=== PATIENT | female | born 1990 | race Caucasian/White ===

== ENCOUNTER 2016-06-10 11:11 | Emergency (ER) | payer BC ==
[~2016-06-10] VITALS: Ht 154.9 cm; Wt 73.0 kg
[~2016-06-10 11:11] MED LIST: BIRTH CONTROL PILL; REQUIP1 MG PO
[2016-06-10 11:58] LABS: HEMATOCRIT 42.2 % (36.0-46.0); MCHC 34.6 G/DL (30.0-36.0); MCV 86.8 FL (83-99); MEAN PLAT.VOLUME 9.6 uM^3 (9.5-12.4); PLATELET COUNT 268 K/uL (156-360); RBC DIS.WIDTH-CV 12.5 % (11.8-14.6); RBC DIS.WIDTH-SD 38.8 % (39-53); RED BLOOD COUNT 4.86 M/uL (3.80-5.20)
[2016-06-10 12:06] LABS: CHLORIDE 105 mEq/L (99-109); SODIUM 139 mEq/L (136-147)
[2016-06-10 12:08] LABS: GLUCOSE 80 mg/dL (70-99)
[2016-06-10 12:10] LABS: ANION GAP 11 MEQ/L (2-14)
[2016-06-10 12:12] LABS: ALKALINE PHOSPHATASE 61 IU/L (3-129); GFR ESTIMATE (CALCULATED) > 59 mL/min/
[2016-06-10 12:13] LABS: UREA NITROGEN (BUN) 9 mg/dL (9-23)
[2016-06-10 12:15] LABS: LIPASE 20 U/L (1.0-51.0)
[2016-06-10 12:26] LABS: QUANTITATIVE HCG < 4.0 MIU/ML
[2016-06-10 14:48] LABS: ADD MIUA? NO; BILIRUBIN NEGATIVE; BLOOD NEGATIVE; COLOR YELLOW ((YELLOW)); GLUCOSE (STRIP) NEGATIVE; KETONES 15; LEUKOCYTES NEGATIVE; NITRITE NEGATIVE; PH, URINE 6.5 (5-8); PROTEIN (STRIP) TRACE; SPECIFIC GRAVITY 1.028 (1.000-1.030); UCUL ADDED? NO; UROBILINOGEN 0.2 MG/DL (0.2-1.0)
[2016-06-10] MEDS ORDERED: ZOFRAN ODT8 MG PO (15:12)
[2016-06-10] MEDS ORDERED: ZANTAC150 MG PO (15:12)
[2016-06-10 15:24] VITALS: BP 145/84
== END 2016-06-10 15:27 | disposition home or self-care (01) ==
LOC: EME 11:11
DX: R11.2 Nausea with vomiting, unspecified (principal)
CPT/HCPCS: 80053; 81003; 83690; 84702; 85027; 86850; 86900; 86901; 99281; 99284

== ENCOUNTER → 2016-06-12 | Outpatient (CLI) | payer BC ==
[~2016-06-12] MED LIST changes: +ZANTAC150 MG PO; +ZOFRAN ODT8 MG PO
== END | disposition home or self-care (01) ==
LOC: AMB 14:00
DX: R10.9 Unspecified abdominal pain (principal)
CPT/HCPCS: 99211

== ENCOUNTER 2016-06-21 07:04 | Day surgery (SDC) | payer BC ==
[~2016-06-21] VITALS: Ht 154.9 cm; Wt 71.8 kg
[~2016-06-21 07:04] MED LIST changes: +LOESTRIN FE 1.1 EACH PO; +OMEPRAZOLE40 M1 PO; +ROPINIROLE HCL1 MG PO; +VYVANSE20 MG PO
[2016-06-21 07:53] VITALS: BP 121/68
[2016-06-21] MEDS ORDERED: NORCO 5/3251 TABLET PO (08:26)
[2016-06-21 12:30] VITALS: BP 120/75
[2016-06-21 13:32] VITALS: BP 127/86
[2016-06-21 15:13] VITALS: BP 128/84
[2016-06-24 11:59] LABS: INTERNAL CONTROL VALID? YES
== END 2016-06-21 15:19 | disposition home or self-care (01) ==
LOC: SDC 07:04
PROVIDERS: Anesthesiology
DX: K80.10 Calculus of gallbladder with chronic cholecystitis without obstruction (principal); G43.109 Migraine with aura, not intractable, without status migrainosus; J45.909 Unspecified asthma, uncomplicated; G25.81 Restless legs syndrome; Z80.0 Family history of malignant neoplasm of digestive organs; Z80.1 Family history of malignant neoplasm of trachea, bronchus and lung
CPT/HCPCS: 74300; 84703; 88304; C1769; J0690; J1100; J1170; J1885; J2250; J2405; J2710; J3010; S0020

== ENCOUNTER 2017-04-08 00:35 | Emergency (ER) | payer OTHER ==
[~2017-04-08] VITALS: Ht 154.9 cm; Wt 77.2 kg
[~2017-04-08 00:35] MED LIST changes: +NORCO 5/3251 TABLET PO
[2017-04-08] MEDS ORDERED: VENTOLIN HFA18 GM IH (01:54)
[2017-04-08] MEDS ORDERED: PREDNISONE10 M1 PO (01:54)
[2017-04-08 02:05] VITALS: BP 145/70
== END 2017-04-08 02:05 | disposition home or self-care (01) ==
LOC: EME 00:35 → RME 00:35
DX: J45.901 Unspecified asthma with (acute) exacerbation (principal); K21.9 Gastro-esophageal reflux disease without esophagitis
CPT/HCPCS: 94640

== ENCOUNTER 2017-04-11 10:25 | Emergency (ER) | payer OTHER ==
[~2017-04-11] VITALS: Ht 154.9 cm; Wt 82.9 kg
[~2017-04-11 10:25] MED LIST changes: +PREDNISONE10 M1 PO; +VENTOLIN HFA18 GM IH
[2017-04-11 15:38] VITALS: BP 119/85
== END 2017-04-11 15:40 | disposition home or self-care (01) ==
LOC: EME 10:25
PROVIDERS: Physician Assistant
DX: O99.511 Diseases of the respiratory system complicating pregnancy, first trimester (principal); J06.9 Acute upper respiratory infection, unspecified; Z3A.01 Less than 8 weeks gestation of pregnancy
CPT/HCPCS: 71020; 87502; 99281; 99284

== ENCOUNTER 2017-12-03 12:46 | Inpatient (IN) | payer OTHER ==
[2017-12-03] VITALS (17 sets, daily range): BP systolic 115–158; BP diastolic 56–97
[~2017-12-03] VITALS: Ht 154.9 cm; Wt 90.0 kg
[~2017-12-03 12:46] MED LIST changes: +FLINTSTONES M100 MCG PO
[2017-12-03 14:33] LABS: BASOPHIL (%) 0.6 % (0-1); BASOPHIL COUNT 0.1 K/uL (0-0.1); EOSINOPHIL (%) 1.1 % (0-5); EOSINOPHIL COUNT 0.1 K/uL (0-0.3); HEMATOCRIT 32.8 % (36.0-46.0); HEMOGLOBIN 10.7 G/DL (11.9-15.5); IMMATURE GRANULOCYTE (%) 0.4 % (0.0-0.7); LYMPHOCYTE (%) 35.2 % (15-42); LYMPHOCYTE COUNT 2.9 K/uL (1.0-2.8); MCH 26.7 PG (29.0-34.0); MCHC 32.6 G/DL (30.0-36.0); MCV 81.8 FL (83-99); MONOCYTE (%) 7.5 % (3-12); MONOCYTE COUNT 0.6 K/uL (0-0.8); NEUTROPHIL (%) 55.2 % (45-76); NEUTROPHIL COUNT 4.6 K/uL (1.8-6.4); PLATELET COUNT 230 K/uL (156-360); RBC DIS.WIDTH-CV 15.4 % (11.8-14.6); RBC DIS.WIDTH-SD 44.9 % (39-53); RED BLOOD COUNT 4.01 M/uL (3.80-5.20); WHITE BLOOD COUNT 8.4 K/uL (4.1-10.2)
[2017-12-03 14:41] LABS: ALBUMIN 3.5 g/dL (3.2-4.8)
[2017-12-03 14:42] LABS: CHLORIDE 105 mEq/L (99-109); POTASSIUM 4.6 mEq/L (3.7-5.4); SODIUM 136 mEq/L (136-147)
[2017-12-03 14:44] LABS: GLUCOSE 76 mg/dL (70-99); TOTAL PROTEIN 6.1 g/dL (6.4-8.3)
[2017-12-03 14:46] LABS: TOTAL BILIRUBIN 0.5 mg/dL (0.0-1.0)
[2017-12-03 14:47] LABS: ALKALINE PHOSPHATASE 256 IU/L (3-129)
[2017-12-03 14:48] LABS: CREATININE 0.8 mg/dL (0.6-1.3); GFR ESTIMATE (CALCULATED) > 59 mL/min/
[2017-12-03 14:49] LABS: AST (GOT) 16 IU/L (2-34); UREA NITROGEN (BUN) 11 mg/dL (9-23)
[2017-12-03 14:50] LABS: ALT (GPT) 9 IU/L (3-49)
[2017-12-03 16:18] LABS: BENZODIAZEPINES, URINE SCREEN Negative (200 ng/mL)
[2017-12-04] VITALS (31 sets, daily range): BP systolic 107–158; BP diastolic 66–116
[2017-12-05] VITALS (10 sets, daily range): BP systolic 113–144; BP diastolic 56–96
[2017-12-05 03:00] LABS: BASOPHIL (%) 0.3 % (0-1); EOSINOPHIL (%) 0.1 % (0-5); HEMATOCRIT 28.6 % (36.0-46.0); HEMOGLOBIN 9.6 G/DL (11.9-15.5); IMMATURE GRANULOCYTE (%) 0.7 % (0.0-0.7); LYMPHOCYTE (%) 12.1 % (15-42); LYMPHOCYTE COUNT 1.9 K/uL (1.0-2.8); MCH 27.3 PG (29.0-34.0); MCHC 33.6 G/DL (30.0-36.0); MCV 81.3 FL (83-99); MONOCYTE (%) 7.2 % (3-12); MONOCYTE COUNT 1.2 K/uL (0-0.8); NEUTROPHIL (%) 79.6 % (45-76); NEUTROPHIL COUNT 12.7 K/uL (1.8-6.4); PLATELET COUNT 200 K/uL (156-360); RBC DIS.WIDTH-CV 15.6 % (11.8-14.6); RBC DIS.WIDTH-SD 45.5 % (39-53); RED BLOOD COUNT 3.52 M/uL (3.80-5.20)
[2017-12-05 03:13] LABS: CHLORIDE 107 mEq/L (99-109); POTASSIUM 4.2 mEq/L (3.7-5.4); SODIUM 136 mEq/L (136-147)
[2017-12-05 03:15] LABS: GLUCOSE 80 mg/dL (70-99); TOTAL PROTEIN 5.3 g/dL (6.4-8.3)
[2017-12-05 03:18] LABS: ALKALINE PHOSPHATASE 229 IU/L (3-129)
[2017-12-05 03:19] LABS: CREATININE 1.2 mg/dL (0.6-1.3); GFR ESTIMATE (CALCULATED) 56 mL/min/
[2017-12-05 03:20] LABS: UREA NITROGEN (BUN) 16 mg/dL (9-23)
[2017-12-05 03:21] LABS: ALT (GPT) 10 IU/L (3-49)
[2017-12-05 03:22] LABS: AST (GOT) 26 IU/L (2-34); TOTAL BILIRUBIN 0.7 mg/dL (0.0-1.0)
[2017-12-06 01:48] VITALS: BP 134/80
[2017-12-06 06:54] LABS: BASOPHIL (%) 0.5 % (0-1); BASOPHIL COUNT 0.1 K/uL (0-0.1); EOSINOPHIL (%) 2.6 % (0-5); EOSINOPHIL COUNT 0.3 K/uL (0-0.3); HEMATOCRIT 26.8 % (36.0-46.0); HEMOGLOBIN 8.6 G/DL (11.9-15.5); IMMATURE GRANULOCYTE (%) 0.5 % (0.0-0.7); LYMPHOCYTE (%) 33.6 % (15-42); LYMPHOCYTE COUNT 4.3 K/uL (1.0-2.8); MCH 26.7 PG (29.0-34.0); MCHC 32.1 G/DL (30.0-36.0); MCV 83.2 FL (83-99); MONOCYTE (%) 6.4 % (3-12); MONOCYTE COUNT 0.8 K/uL (0-0.8); NEUTROPHIL (%) 56.4 % (45-76); NEUTROPHIL COUNT 7.3 K/uL (1.8-6.4); PLATELET COUNT 204 K/uL (156-360); RBC DIS.WIDTH-CV 16.1 % (11.8-14.6); RBC DIS.WIDTH-SD 47.8 % (39-53); RED BLOOD COUNT 3.22 M/uL (3.80-5.20); WHITE BLOOD COUNT 12.9 K/uL (4.1-10.2)
[2017-12-06 07:18] LABS: CHLORIDE 109 MEQ/L (99-109); CREATININE 0.9 MG/DL (0.6-1.3); GFR ESTIMATE (CALCULATED) > 59 mL/min/; GLUCOSE 72 mg/dL (70-99); POTASSIUM 4.1 MEQ/L (3.7-5.4); SODIUM 139 MEQ/L (136-147); UREA NITROGEN (BUN) 10 mg/dL (9-23)
[2017-12-06] MEDS ORDERED: FERROUS SULFAT325 MG PO (12:26)
[2017-12-06 19:08] VITALS: BP 127/81
[2017-12-06 23:28] VITALS: BP 131/84
[2017-12-07 04:00] VITALS: BP 126/74
[2017-12-07 06:56] VITALS: BP 138/90
[2017-12-07 11:33] VITALS: BP 133/89
== END 2017-12-07 15:05 | disposition home or self-care (01) | DRG 774 ==
LOC: LDRP-OP 12:46 → 2WEST 12:47 → LDRP-OP 01-02 09:56
PROVIDERS: Nurse Practitioner; Obstetrics & Gynecology
PROC: 3E0R3BZ Introduction of Anesthetic Agent into Spinal Canal, Percutaneous Approach (ICD-10-PCS; principal; 2017-12-05)
PROC: 10907ZC Drainage of Amniotic Fluid, Therapeutic from Products of Conception, Via Natural or Artificial Opening (ICD-10-PCS; principal; 2017-12-05)
PROC: 10D07Z6 Extraction of Products of Conception, Vacuum, Via Natural or Artificial Opening (ICD-10-PCS; principal; 2017-12-05)
PROC: 0KQM0ZZ Repair Perineum Muscle, Open Approach (ICD-10-PCS; principal; 2017-12-05)
PROC: 3E033VJ Introduction of Other Hormone into Peripheral Vein, Percutaneous Approach (ICD-10-PCS; principal; 2017-12-05)
PROC: 3E0P7VZ Introduction of Hormone into Female Reproductive, Via Natural or Artificial Opening (ICD-10-PCS; principal; 2017-12-05)
PROC: 00HU33Z Insertion of Infusion Device into Spinal Canal, Percutaneous Approach (ICD-10-PCS; principal; 2017-12-05)
DX: O13.4 Gestational [pregnancy-induced] hypertension without significant proteinuria, complicating childbirth (principal); O63.1 Prolonged second stage (of labor); O75.2 Pyrexia during labor, not elsewhere classified; O99.02 Anemia complicating childbirth; D50.9 Iron deficiency anemia, unspecified; O99.52 Diseases of the respiratory system complicating childbirth; J45.909 Unspecified asthma, uncomplicated; G25.81 Restless legs syndrome; O70.1 Second degree perineal laceration during delivery; O75.81 Maternal exhaustion complicating labor and delivery; O76 Abnormality in fetal heart rate and rhythm complicating labor and delivery; O66.5 Attempted application of vacuum extractor and forceps; Z37.0 Single live birth; Z3A.40 40 weeks gestation of pregnancy
CPT/HCPCS: 80048; 80053; 80306 90; 82570; 84156; 85025; 87070; 87075; 87205; 88307; C1755; G0378; J0295; J0595; J3010; J7050; J7120; Q0169